=== PATIENT | female | born 1940 | race Caucasian/White ===

== ENCOUNTER 2019-09-25 07:20 | Day surgery (SDC) | payer OTHER ==
[~2019-09-25 07:20] MED LIST: COZAAR25 MG PO; PLAVIX75 MG PO; SYNTHROID75 MCG PO
== END 2019-09-25 12:04 | disposition home or self-care (01) ==
LOC: AMB-ENDOS 07:20 → ADM 15:00 → AMB-ENDOS 15:00
DX: K62.89 Other specified diseases of anus and rectum (principal); K57.30 Diverticulosis of large intestine without perforation or abscess without bleeding; K64.1 Second degree hemorrhoids

== ENCOUNTER 2021-05-01 09:42 | Emergency (ER) | payer OTHER ==
[~2021-05-01] VITALS: Ht 162.6 cm; Wt 81.6 kg
[2021-05-01] MEDS ORDERED: ORTHO DF 3,7751 EACH (10:00)
[2021-05-01] MEDS ORDERED: BACTRIM DS TAB1 EACH PO (19:47)
[2021-05-01] MEDS ORDERED: LEVSIN/SL0.125 MG SL (19:47)
== END 2021-05-01 20:27 | disposition home or self-care (01) ==
LOC: ER 09:42
DX: R10.13 Epigastric pain (principal); N39.0 Urinary tract infection, site not specified; Z20.822 Contact with and (suspected) exposure to COVID-19

== ENCOUNTER 2021-06-30 07:05 | Day surgery (SDC) | payer OTHER ==
[~2021-06-30 07:05] MED LIST changes: +BACTRIM DS TAB1 EACH PO; +LEVSIN/SL0.125 MG SL; +ORTHO DF 3,7751 EACH
== END 2021-06-30 12:45 | disposition home or self-care (01) ==
LOC: AMB-ENDOS 07:05
PROVIDERS: ATTEND Colon & Rectal Surgery
DX: K62.89 Other specified diseases of anus and rectum (principal); K64.2 Third degree hemorrhoids

== ENCOUNTER 2025-03-13 17:48 | Emergency (ER) | payer OTHER ==
[~2025-03-13] VITALS: Ht 162.6 cm; Wt 65.8 kg
[2025-03-13] MEDS ORDERED: VITAMIN B-121000 MCG (18:28)
[2025-03-13] MEDS ORDERED: HYOSCYAMINE0.125 M1 (18:28)
[2025-03-13] MEDS ORDERED: KETOROLAC TROMETHAMINE 15 MG VIAL IM STA (20:30)
[2025-03-13] MEDS ORDERED: IBU600 MG PO (21:32)
== END 2025-03-13 23:14 | disposition home or self-care (01) ==
LOC: ER 17:59
DX: M79.601 Pain in right arm (principal); I10 Essential (primary) hypertension; E03.8 Other specified hypothyroidism; Z91.013 Allergy to seafood
CPT/HCPCS: 96372; 99282; J1885

== ENCOUNTER 2025-03-24 16:47 | Inpatient (IN) | payer OTHER ==
[~2025-03-24] VITALS: Ht 167.6 cm; Wt 72.6 kg
[~2025-03-24 16:47] MED LIST changes: +HYOSCYAMINE0.125 M1; +IBU600 MG PO; +VITAMIN B-121000 MCG
[2025-03-24] MEDS ORDERED: KETOROLAC TROMETHAMINE 15 MG VIAL IV STA (18:52)
[2025-03-24] MEDS ORDERED: 0.9 % SODIUM CHLORIDE 1,000 ML IV STA (18:52)
[2025-03-24] MEDS ORDERED: HYOSCYAMINE SULFATE 0.125 MG TAB.SUBL SL ONE (19:00)
[2025-03-24] MEDS ORDERED: HYOSCYAMINE SULFATE 0.125 MG TAB.SUBL ONE (19:12)
[2025-03-24] MEDS ORDERED: KETOROLAC TROMETHAMINE 30 MG VIAL ONE (19:12)
[2025-03-24 19:34] LABS: BASO % 0.4 % (0.1-1.2); EOS # 0.00 (0.04-0.54); EOS % 0.0 % (0.7-7.0); LYMPH # 1.03 (1.18-3.74); LYMPH % 12.7 % (19.3-53.1); MEAN PLATELET VOLUME 9.80 fl (9.4-12.4); MONO # 0.23 (0.24-0.82); MONO % 2.8 % (4.7-12.5); NEUT # 6.79 (1.56-6.13); NEUT % 83.9 % (34.0-71.1); RED CELL DISTRIBUTION WIDTH 14.5 % (11.6-14.4)
[2025-03-24 19:58] LABS: INR 1.1
[2025-03-24 20:01] LABS: ALT/SGPT 16.0 U/L (12-78); AST/SGOT 18.0 U/L (15-37); BILIRUBIN TOTAL 0.63 mg/dL (0.3-1.2); BUN CREA RATIO 13.0 (7.0-25.0); CREATININE SERUM 0.7 mg/dL (0.55-1.02); GFR 80.11; GLOBULINA 4.8 G/DL (2.4-3.5); GLUCOSE FASTING 105.0 mg/dL (65-100); OSMOLALITY SERUM 275.0 MOSM/KG (275-295)
[2025-03-24] MEDS ORDERED: 0.9 % SODIUM CHLORIDE 1,000 ML IV SCH (23:00)
[2025-03-24] MEDS ORDERED: MORPHINE SULFATE 4 MG/ML CARTRIDGE IV PRN (23:00)
[2025-03-24] MEDS ORDERED: ONDANSETRON HCL 4 MG in 0.9 % SODIUM CHLORIDE 50 ML IV PRN (23:00)
[2025-03-24] MEDS ORDERED: ENALAPRILAT DIHYDRATE 1.25 MG/ML VIAL IV PRN (23:00)
[2025-03-25] MEDS ORDERED: PIPERACILLIN/TAZOBACTAM SODIUM 3.375 GM in DEXTROSE 5 % IN WATER 100 ML IV SCH
[2025-03-25 00:19] LABS: URINE APPEARANCE Clear; URINE BILIRRUBIN Negative (NEGATIVE); URINE BLOOD NHT; URINE COLOR Yellow; URINE GLUCOSE Negative (NEGATIVE); URINE KETONE 15 (NEGATIVE); URINE LEUKOCYTE Moderate; URINE NITRATE Negative; URINE PROTEIN Negative (NEGATIVE); URINE UROBILINOGEN 0.2 E.U./dl
[2025-03-25 00:22] LABS: URINE BACTERIA 91.1 uL (0.0-1933); URINE EPITHELIAL CELLS 16.3 uL (0.0-38.8); URINE RBC 16.4 uL (0.0-20.8); URINE WBC 196.0 uL (0.0-23.2)
[2025-03-25 01:02] LABS: URINE CAST 0.43 uL (0.0-1.40); URINE EPITHELIAL CELLS 0-4 /HPF
[2025-03-25 02:06] VITALS: BP 163/84
[2025-03-25 02:23] VITALS: BP 131/63; O2SAT 95
[2025-03-25] MEDS ORDERED: FAMOTIDINE/PF 20 MG in 0.9 % SODIUM CHLORIDE 8 ML IV PUSH SCH (09:00)
[2025-03-25 16:00] VITALS: BP 149/68; O2SAT 98
[2025-03-26 00:25] VITALS: BP 140/67; O2SAT 98
[2025-03-26 08:00] VITALS: BP 159/78; O2SAT 99
[2025-03-26] MEDS ORDERED: KETOROLAC TROMETHAMINE 30 MG VIAL IV ONE (10:15)
[2025-03-26 16:17] VITALS: BP 169/77; O2SAT 100
[2025-03-27] VITALS: BP 146/67; O2SAT 100
[2025-03-27 07:39] LABS: BASO % 0.8 % (0.1-1.2); EOS # 0.14 (0.04-0.54); EOS % 2.7 % (0.7-7.0); LYMPH # 1.15 (1.18-3.74); LYMPH % 22.2 % (19.3-53.1); MEAN PLATELET VOLUME 11.00 fl (9.4-12.4); MONO # 0.33 (0.24-0.82); MONO % 6.4 % (4.7-12.5); NEUT # 3.49 (1.56-6.13); NEUT % 67.5 % (34.0-71.1); RED CELL DISTRIBUTION WIDTH 14.5 % (11.6-14.4)
[2025-03-27 08:00] VITALS: BP 128/71; O2SAT 100
[2025-03-27 08:50] LABS: ALT/SGPT 12.0 U/L (12-78); AST/SGOT 14.0 U/L (15-37); BILIRUBIN TOTAL 0.61 mg/dL (0.3-1.2); BUN CREA RATIO 19.0 (7.0-25.0); CREATININE SERUM 0.59 mg/dL (0.55-1.02); GFR 97.58; GLOBULINA 3.3 G/DL (2.4-3.5); GLUCOSE FASTING 60.0 mg/dL (65-100); OSMOLALITY SERUM 275.0 MOSM/KG (275-295)
[2025-03-27] MEDS ORDERED: METOCLOPRAMIDE HCL 5 MG/ML VIAL IV SCH (09:00)
[2025-03-27 16:00] VITALS: BP 180/81; O2SAT 100
[2025-03-27 23:51] VITALS: BP 150/68; O2SAT 97
[2025-03-28 08:00] VITALS: BP 173/84; O2SAT 95
[2025-03-28 16:15] VITALS: BP 192/84; O2SAT 97
== END 2025-03-28 20:47 | disposition home or self-care (01) | DRG 389 ==
LOC: ER 16:50 → SURG 22:56
PROVIDERS: General Practice; Internal Medicine Infectious Disease; ADMIT Internal Medicine; ATTEND Internal Medicine
PROC: BW21ZZZ Computerized Tomography (CT Scan) of Abdomen and Pelvis (ICD-10-PCS; principal; 2025-03-24)
DX: K56.600 Partial intestinal obstruction, unspecified as to cause (principal); K43.6 Other and unspecified ventral hernia with obstruction, without gangrene; I25.10 Atherosclerotic heart disease of native coronary artery without angina pectoris; I11.0 Hypertensive heart disease with heart failure; E03.9 Hypothyroidism, unspecified; E78.5 Hyperlipidemia, unspecified